=== PATIENT | male | born 1970 ===

== ENCOUNTER 2018-09-24 10:46 | Day surgery (SDC) | payer SELFPAY ==
[2018-09-14 12:30] VITALS: BMI 54.5
--- NOTE | 2018-09-24 11:40 | SUR.PREOP ---
case cancelled per dr thomas, pt took lovenox this morning , deferred case iv was started and discontinued
== END 2018-09-24 11:00 ==
PROVIDERS: Visit Provider Orthopaedic Surgery
PROC: 0RQK4ZZ Repair Left Shoulder Joint, Percutaneous Endoscopic Approach (ICD-10-PCS; CPT 29807; principal; 2018-09-24 12:45)

== ENCOUNTER → 2018-10-08 09:48 | Outpatient (CLI) | payer OTHER, SELFPAY ==
[2018-10-03 11:53] VITALS: BMI 52.9
[2018-10-08 10:08] VITALS: BP 132/97; PULSE 88; RESP 16; TEMP 36.4; O2SAT 97; BMI 50.9
[2018-10-08 10:46] LABS: INR 2.8 (0.9-1.3)
--- NOTE | 2018-10-08 11:09 | SUR.PREOP ---
Upon entering pre-op area pt's VS and bedside INR were checked. INR result was 2.7. I notified Dr. Jonas who requested a confirmatory Lab PT/INR. This was drawn and sent STAT. Result of Lab was INR 2.8. Dr. Jonas notified and at that point decided to cancel the pt's surgery today. Dr. Jonas gave explicit instructions to the pt which I wrote down and handed to the pt, instructions were as follows: Your surgery has been rescheduled for Monday, Oct 12, 2018, I will call you with your new showtime. Do not take your coumadin/warfarin tablets. Continue taking your Lovenox shots twice daily through with your last injection night. Do not take an injection on Monday. Please call the Outpatient Surgery Department with any questions, . Pt stated that he understood these instructions and did not have any questions at this time.
== END ==
PROVIDERS: Visit Provider Orthopaedic Surgery
PROC: 0RQK4ZZ Repair Left Shoulder Joint, Percutaneous Endoscopic Approach (ICD-10-PCS; CPT 29807; principal; 2018-10-08 12:00)
DX: Z79.01 Long term (current) use of anticoagulants (principal); I48.91 Unspecified atrial fibrillation
CPT/HCPCS: 85610

== ENCOUNTER 2018-10-12 08:33 | Day surgery (SDC) | payer OTHER, SELFPAY ==
[2018-10-09 08:13] VITALS: BMI 52.9
[2018-10-12] VITALS (12 sets, daily range): BP systolic 102–144; BP diastolic 71–91; PULSE 64–88; RESP 10–16; TEMP 35.9–36.7; O2SAT 93–98; BMI 51.1
[2018-10-12] MEDS: LACTATED RINGERS 1,000 ML 42 ML IV (09:26)
--- NOTE | 2018-10-12 10:44 | PM.PREOP ---
Pre-operative Note Interval Note Pre-op Check: Yes History & Physical Reviewed by Physician and Yes Exam Performed Changes: Yes H&P completed within 30 days and has changed as indicated here:: The patient's high INR has normalized to 1.1. He was compliant with instructions to stop his Lovenox last night.
[2018-10-12] MEDS: CEFAZOLIN VIAL 3 GM in SODIUM CHLORIDE 0.9% 100 ML 200 ML IV (11:19)
--- NOTE | 2018-10-12 11:53 | SUR.OPER ---
Lateral on padded OR bed with oswald bag positioner, head on pillow, gel axillary roll in place, bottom leg bent with gel pad under knee to foot, upper leg straight and supported with pillows. Operative arm secured in shoulder positioning suspension device. non-operative arm secured on padded arm board. Safety belt at hip, tape over blanket securing lower legs.
[2018-10-12] MEDS: BUPIVACAINE 0.5% W/ EPI (PF) VIAL 30 ML INJ (12:07)
[2018-10-12] MEDS: SODIUM CHLORIDE IRRIG SOLUTION 3,000 ML, EPINEPHrine 1 MG IRR (12:08)
--- NOTE | 2018-10-12 12:50 | PM.OP.1 ---
Operative Date/Time/Diagnoses Date of procedure: 10/12/18 Time of procedure: 12:50 Pre-op diagnosis: Left shoulder SLAP lesion Post-op diagnosis: same Procedure & Clinicians Procedure: 1. Left shoulder arthroscopic SLAP repair 2. Suprascapular nerve block by surgeon for postoperative pain control Same procedure as scheduled: Yes Indications: The patient is a 48-year-old gentleman who has had an injury to his shoulder at work. This continues to be painful despite nonoperative measures and after discussion of the risks benefits and alternatives and an MRI which appears to reveal a superior labral lesion he has agreed to surgery. Risks discussed included but were not limited to: Failure to improve, stiffness, infection, nerve damage, deep venous thrombosis, pulmonary embolism, and significant risk of anesthetic complication given his underlying medical state and morbid obesity. These risks included but were not limited to stroke, coma, myocardial infarction, aspiration, permanent paralysis and . Surgeon: Shaheen Jonas Pipe Bending Machine Operator: Jeanine Mason Click Yes if Unassisted: No Anesthesia Type: General and Peripheral nerve block Operative Notes Findings: 1. Normal glenohumeral cartilage 2. Separation of the superior labrum undermining the biceps insertion 3. Intact subscapularis 4. Intact appearing biceps tendon 5. Intact supraspinatus 6. Intact infraspinatus 7. Intact glenohumeral ligaments 8. Normal appearing axillary pouch Closure Type: primary Specimen(s): none sent Implants & Drains: Two Arthrex knotless SutureTak PEEK anchors Applied: implant(s) Estimated Blood Loss (mL): 10 Blood products transfused: none Procedure in detail: The patient was seen in the preoperative area where he identified the left shoulder as the operative site and this was marked with my initials. He received preoperative antibiotics and was taken to the operating room and placed on the operating room table in the supine position where he underwent the induction of a general anesthetic. A boxing inspector-out was performed. Following the onset of satisfactory general anesthesia, he was repositioned in the right lateral decubitus position with an axillary roll and padding for all pressure points. He was stabilized in this position with a beanbag, a hip decoration checker device and multiple pieces of tape. The left arm was prepared from the wrist to the base of the neck with ChloraPrep in the usual fashion drape through sterile drapes. The arm was placed in 15 lb of balanced skin suspension. The additional weight was due to the patient's large size. Subcutaneous landmarks were outlined on the skin with a marking pen and portal sites selected. Prior to starting surgery a suprascapular nerve block was induced using 10 mL of 0.5% Marcaine for postoperative pain control. The posterior portal was established and the arthroscope inserted in the glenohumeral joint. Diagnostic arthroscopy ensued with the result given above. A cannula was placed in an anterior superior position to allow access to the superior portion of the glenoid. A shaver was used to abrade the extra-articular margin of the superior glenoid to promote healing. A ?port of Bee? was created as a stab wound and an anchor introduced using the percutaneous dilation system that comes with the anchor system. A passing suture was placed around the superior labrum posterior to the biceps and the knotless suture anchor was deployed to tighten the posterior aspect of the SLAP lesion. An additional anteroinferior portal was established with an inside-out technique using a Wissinger sally. A smaller anterior cannula was inserted for suture management anteriorly. A 2nd anchor was placed just anterior to the biceps anchor through the anterosuperior portal and this anchor was also deployed completing the repair. I then palpated the repair with a probe and confirmed appropriate tight repair. At this point all arthroscopic equipment was removed. And additional 20 mL of 0.5% Marcaine were injected in the subcutaneous tissues and the subacromial space for additional postoperative pain control. The wounds were closed with 4 0 Monocryl and Steri-Strips. A dressing of sterile 4x4s, an ABD and adhesive dressings were applied. The patient's arm was then placed in a sling and he was transferred to the recovery room in good condition having tolerated the procedure well. Complications: none Condition: stable Disposition: PACU Plan for aftercare: The patient will be discharged when he is awake from anesthesia. He will be maintained on a standard SLAP repair protocol. He will be allowed to return to light duty work with no use of the left hand except computer or writing in approximately 2 and half weeks.
[2018-10-12] MEDS: HYDROMORPHONE 2 MG INJ 0.5 MG IV ×2 (13:01→13:06)
--- NOTE | 2018-10-12 13:01 | P.OP_ITS ---
Operative Date/Time/Diagnoses Date of procedure: 10/12/18 Time of procedure: 12:50 Pre-op diagnosis: Left shoulder SLAP lesion Post-op diagnosis: same Procedure & Clinicians Procedure: 1. Left shoulder arthroscopic SLAP repair 2. Suprascapular nerve block by surgeon for postoperative pain control Same procedure as scheduled: Yes Indications: The patient is a 48-year-old gentleman who has had an injury to his shoulder at work. This continues to be painful despite nonoperative measures and after discussion of the risks benefits and alternatives and an MRI which appears to reveal a superior labral lesion he has agreed to surgery. Risks discussed included but were not limited to: Failure to improve, stiffness , infection, nerve damage, deep venous thrombosis, pulmonary embolism, and significant risk of anesthetic complication given his underlying medical state and morbid obesity. These risks included but were not limited to stroke, coma, myocardial infarction, aspiration, permanent paralysis and . Surgeon: Shaheen Jonas Purchasing Analyst: Jeanine Mason Click Yes if Unassisted: No Anesthesia Type: General and Peripheral nerve block Operative Notes Findings: 1. Normal glenohumeral cartilage 2. Separation of the superior labrum undermining the biceps insertion 3. Intact subscapularis 4. Intact appearing biceps tendon 5. Intact supraspinatus 6. Intact infraspinatus 7. Intact glenohumeral ligaments 8. Normal appearing axillary pouch Closure Type: primary Specimen(s): none sent Implants & Drains: Two Arthrex knotless SutureTak PEEK anchors Applied: implant(s) Estimated Blood Loss (mL): 10 Blood products transfused: none Procedure in detail: The patient was seen in the preoperative area where he identified the left shoulder as the operative site and this was marked with my initials. He received preoperative antibiotics and was taken to the operating room and placed on the operating room table in the supine position where he underwent the induction of a general anesthetic. A part time flexible clerk-out was performed. Following the onset of satisfactory general anesthesia, he was repositioned in the right lateral decubitus position with an axillary roll and padding for all pressure points. He was stabilized in this position with a beanbag, a hip supervisor personnel clerks device and multiple pieces of tape. The left arm was prepared from the wrist to the base of the neck with ChloraPrep in the usual fashion drape through sterile drapes. The arm was placed in 15 lb of balanced skin suspension. The additional weight was due to the patient's large size. Subcutaneous landmarks were outlined on the skin with a marking pen and portal sites selected. Prior to starting surgery a suprascapular nerve block was induced using 10 mL of 0.5% Marcaine for postoperative pain control. The posterior portal was established and the arthroscope inserted in the glenohumeral joint. Diagnostic arthroscopy ensued with the result given above. A cannula was placed in an anterior superior position to allow access to the superior portion of the glenoid. A shaver was used to abrade the extra- articular margin of the superior glenoid to promote healing. A ?port of [place]? was created as a stab wound and an anchor introduced using the percutaneous dilation system that comes with the anchor system. A passing suture was placed around the superior labrum posterior to the biceps and the knotless suture anchor was deployed to tighten the posterior aspect of the SLAP lesion. An additional anteroinferior portal was established with an inside-out technique using a Wissinger sally. A smaller anterior cannula was inserted for suture management anteriorly. A 2nd anchor was placed just anterior to the biceps anchor through the anterosuperior portal and this anchor was also deployed completing the repair. I then palpated the repair with a probe and confirmed appropriate tight repair. At this point all arthroscopic equipment was removed. And additional 20 mL of 0.5% Marcaine were injected in the subcutaneous tissues and the subacromial space for additional postoperative pain control. The wounds were closed with 4 0 Monocryl and Steri-Strips. A dressing of sterile 4x4s, an ABD and adhesive dressings were applied. The patient's arm was then placed in a sling and he was transferred to the recovery room in good condition having tolerated the procedure well. Complications: none Condition: stable Disposition: PACU Plan for aftercare: The patient will be discharged when he is awake from anesthesia. He will be maintained on a standard SLAP repair protocol. He will be allowed to return to light duty work with no use of the left hand except computer or writing in approximately 2 and half weeks.
--- NOTE | 2018-10-12 13:10 | SUR.PHASEI ---
Sats starting to drop but RR still unchanged. Has rec'd Dilaudid 1 mg for c/o pain. Has not been fu;lly awake yet and reported pain is < FLACC scale rating.
[2018-10-12] MEDS: OXYCODONE IR 5 MG TABLET PO ×2 (13:16→13:48)
--- NOTE | 2018-10-12 13:34 | SUR.PHASEI ---
Upper denture in place on transfer to [facility]. Intermittent sleep with c/o shoulder pain to 8/10 and medicated, however FLACC rating would be much less. Given 1mg Dilaudid with some resp sat depression since resolved. Rec'd first oral med in PACU for pain.
--- NOTE | 2018-10-12 13:49 | SUR.PHASEII ---
PT ARRIVED TO PHASE II VIA STRETCHER. PT SITTING UP IN BED WITH EYES CLOSED. EASILY AROUSABLE TO VOICE WHEN SPOKEN TO. SURGICAL DRESSING OBSERVED TO BE C/D/I. PT DENIES ANY NAUSEA. AWAITING RETURN OF PT FRIEND FROM PICKING UP RX. PT C/O 06/08 SURGICAL SITE PAIN. MEDICATION WITH SECOND DOSE OF PO PAIN MEDICATION. BED IN LOWEST POSITION AND CALL LIGHT GIVEN TO PT. PT APPEARS COMFORTABLE AT THIS TIME.
--- NOTE | 2018-10-12 15:21 | SUR.PHASEII ---
PER [facility] PER PT TRAFFIC DIVISION COMMANDING OFFICER NOTE, PT TO DO LOVENOX INJECTIONS FOR TWO DAYS FOLLOWING SURGERY AND THEN RESUME WARFARIN AFTER THAT. THIS RN CALLED AND LEFT MESSAGE WITH PT WITH THIS INFORMATION. ADVISED PT TO CALL [facility] OFFICE WITH ANY FURTHER QUESTIONS OR CONCERNS.
== END 2018-10-12 14:40 | disposition home or self-care (01) ==
PROVIDERS: Visit Provider Orthopaedic Surgery
PROC: 0RQK4ZZ Repair Left Shoulder Joint, Percutaneous Endoscopic Approach (ICD-10-PCS; CPT 29807; principal; 2018-10-12 10:45)
DX: S43.432A Superior glenoid labrum lesion of left shoulder, initial encounter (principal); G89.18 Other acute postprocedural pain; E66.01 Morbid (severe) obesity due to excess calories; I10 Essential (primary) hypertension; I48.91 Unspecified atrial fibrillation; Z87.891 Personal history of nicotine dependence; Z68.43 Body mass index [BMI] 50.0-59.9, adult
CPT/HCPCS: 29807; J0171; J0330; J0690; J1170; J1610; J2250; J2704; J3010